=== PATIENT | female | born 2005 | race Caucasian/White ===

== ENCOUNTER 2025-05-06 09:26 | Emergency (ER) | payer MEDICAID, SELFPAY ==
[2025-05-06 09:29] VITALS: BP 125/75; PULSE 107; RESP 18; TEMP 36.3; O2SAT 98; BMI 29.1
--- NOTE | 2025-05-06 09:50 | CRLHL7_ITS ---
For Patients: As a result of the Century Cures Act, medical imaging exams and procedure reports are released immediately into your electronic medical record. You may view this report before your referring provider. If you have questions, please contact your health care provider. INDICATION: Rectal bleeding. Abdominal pain. TECHNIQUE: CT abdomen and pelvis acquired with 91 cc Isovue 370 IV contrast. COMPARISON: None. FINDINGS: Lower chest: Unremarkable. Liver: Unremarkable. Normal in size and attenuation. No suspicious masses. Gallbladder and bile ducts: Unremarkable. No stones or inflammation. No biliary dilatation. Pancreas: Unremarkable. No mass or inflammation. Spleen: Unremarkable. Normal in size. No masses. Adrenal glands: Unremarkable. No nodules. Kidneys: Unremarkable. No suspicious masses, stones, or hydronephrosis. GI tract: Generalized wall thickening and edema throughout the colon, most severe in the ascending and sigmoid colon. Normal small bowel. Appendix is dilated up to 7 mm with wall thickening. Vasculature: Abdominal aorta is normal in caliber. Mesenteric arteries are patent. Lymph nodes: No lymphadenopathy. Peritoneum/Abdominal Wall: Unremarkable. No sign of mass or infiltration. No free air or significant free fluid. Pelvis: Unremarkable. Bones: Unremarkable for age. IMPRESSION: 1. Generalized colitis. 2. Dilatation and wall thickening of the appendix is likely secondary to the inflammatory process in the colon rather than a primary appendicitis. Please note that all CT scans at this facility use dose modulation, iterative reconstruction, and/or weight-based dosing when appropriate to reduce radiation dose to as low as reasonably achievable. Dictated by Ryan Del Valle MD @ 05/06/2025 10:56:50 AM (Electronically Signed)
--- NOTE | 2025-05-06 09:52 | ED.GENADULT ---
HPI - General Adult General Chief complaint: Abdominal Pain Stated complaint: Abdominal pains, bloody stools, vomiting Time Seen by Provider: 05/06/25 09:45 Source: patient Mode of arrival: ambulatory Limitations: no limitations History of Present Illness HPI narrative: 20-year-old female presenting today with 2 days of abdominal pain that is located ?everywhere?. Nothing seems to make it better or worse. Yesterday she said she had multiple bowel movements that had bright red blood in them. She states that she vomited this morning and her vomit looked like red Gatorade. She denies anything like this happening before. States that she had pizza last night. She feels lightheaded. She denies feeling short of breath. No coughing. Patient is adopted, unsure of family history. Related Data Home Medications ?Medication ?Instructions ?Recorded ?Confirmed No Known Home Medications 05/06/25 05/06/25 Allergies Allergy/AdvReac Type Severity Reaction Status Date / Time oxytocin AdvReac Intermediate Vomiting Verified 05/06/25 10:34 Review of Systems Status of ROS: Reports: 10 or more systems reviewed and unremarkable except as noted in History and below [facility] Social History Smoking Status: Never smoker Do you use any of these nicotine containing products: None Second hand tobacco smoke exposure: No How often do you have a drink containing alcohol: never How often do you have six or more drinks on one occasion: Never AUDIT-C Alcohol total score: 0 Non-prescribed substance use: denies use Exam Narrative: Exam Narrative: Well-nourished well-developed patient in no acute distress. Alert and oriented. Answers questions appropriately. Mood and affect are appropriate. Thoughts are goal oriented and rational. No tangential or magical thinking noted. Patient speaks in full sentences without needing to catch her breath. Patient does not appear ill or toxic. HEENT: Normocephalic atraumatic. Pupils are equally round reactive to light. Extraocular muscles are intact. Conjunctivae are moist without any icterus noted. Moist mucous membranes. Posterior pharynx is normal. Neck is soft without any lymphadenopathy or thyromegaly. Cardiovascular: Heart is regular rate and rhythm S1 and S2 are present without any murmurs. Lungs: Clear to auscultation bilaterally no wheezes rhonchi or rales are appreciated. Patient takes deep breaths without any discomfort. Abdomen: Soft and nondistended with normal bowel sounds. No guarding or rebound. No masses or organomegaly appreciated. She has minimal diffuse tenderness. Extremities: Bilateral lower extremities are without edema. Normal DP and PT pulses. Skin: Well perfused without any obvious rashes. Const: Vital Signs, click to edit/add: Vital Signs - 24 hr 05/06/25 09:29 05/06/25 11:19 Temperature 97.3 F L 99.6 F Pulse Rate [Right Pulse Oximeter] 107 H 100 Respiratory Rate 18 18 Blood Pressure [Ri ght Upper Arm] 125/75 99/74 Pulse Oximetry 98 98 Oxygen Delivery Me thod Room Air Room Air Course Course ED Course: IV established and patient started on Zofran and normal saline. Labs were drawn: Normal lactate. CBC shows a white cell count of 13.7 with 86% neutrophils. Chemistries and LFTs are normal. CRP elevated at 4.9. Urine unremarkable. CT scan showing diffuse colitis. Patient was able to drink and keep water down while she was here. She did not have any bowel movement. Vital Signs Vital signs: Initial Vital Signs Temperature 97.3 F L 05/06/25 09:29 Temperature Source Temporal Artery Scan 05/06/25 09:29 Pulse Rate 107 H 05/06/25 09:29 Pulse Rhythm Regular 05/06/25 09:29 Pulse Strength 3+ Normal 05/06/25 09:29 Respiratory Rate 18 05/06/25 09:29 Blood Pressure 125/75 05/06/25 09:29 Blood Pressure Mean 91 05/06/25 09:29 Blood Pressure Position Sitting 05/06/25 09:29 Pulse Oximetry 98 05/06/25 09:29 Oxygen Delivery Method Room Air 05/06/25 09:29 Vital Signs Temperature 97.3 F L 05/06/25 09:29 Pulse Rate 107 H 05/06/25 09:29 Respiratory Rate 18 05/06/25 09:29 Blood Pressure 125/75 05/06/25 09:29 Pulse Oximetry 98 05/06/25 09:29 Oxygen Delivery Method Room Air 05/06/25 09:29 Temperature 99.6 F 05/06/25 11:19 Pulse Rate 100 05/06/25 11:19 Respiratory Rate 18 05/06/25 11:19 Blood Pressure 99/74 08/10/25 11:19 Pulse Oximetry 98 05/06/25 11:19 Oxygen Delivery Method Room Air 05/06/25 11:19 Medications Administered Medications: Discontinued Medications Generic Name Dose Route Start Last Admin Trade Name Yann PRN Reason Stop Dose Admin Sodium Chloride 1,000 mls @ 1,000 mls/hr 05/06/25 10:00 05/06/25 11:17 0.9 % Sodium Chloride 1000 Ml IV 05/06/25 10:59 Infused .Q1H SAGE Infusion Ondansetron HCl 4 mg 05/06/25 09:50 05/06/25 10:18 Ondansetron 2 Mg/Ml Inj IVP 05/06/25 09:51 4 mg ONCE ONE Administration Medical Decision Making MDM Narrative Medical decision making narrative: 20-year-old female with diffuse colitis. We discussed a clear liquid diet until she starts to feel better, Tylenol or ibuprofen as needed. I want her to follow up with her primary care provider this coming week to discuss the next steps which may include a colonoscopy. If patient gets worse she is encouraged to return to the emergency department. We did discuss hospitalization today and patient feels like she can manage at home. She will be sent home with a stool collecting kit for stool cultures and C diff testing. Lab Data Lab results reviewed: Yes I reviewed the patient's lab results Labs: Lab Results 05/06/25 05/06/25 Range/Units 09:51 10:00 WBC 13.73 H (4.50-11.00) K/uL RBC 5.11 (4.00-5.20) m/uL Hgb 14.7 (12.0-16.0) gm/dL Hct 44.0 (33.0-51.0) % MCV 86 (80-100) fL MCH 29 (26-34) pg MCHC 33 (32-36) gm/dL RDW Coeff of Michelle 12.3 (11.5-15.5) % Plt Count 328 (140-440) K/uL Neut % (Auto) 86.2 H (42.0-72.0) % Lymph % (Auto) 8.3 L (20-44) % [place] % (Auto) 5.0 (0.0-11.0) % Eos % (Auto) 0.1 (0.0-7.0) % Baso % (Auto) 0.1 (0.0-3.0) % Neut # (Auto) 11.80 H (1.7-7.0) K/uL Lymph # (Auto) 1.10 (0.90-2.90) K/uL [place] # (Auto) 0.70 (0.00-0.90) K/UL Eos # (Auto) 0.00 (0.00-0.50) K/uL Baso # (Auto) 0.00 (0.00-0.30) K/uL Abs Immat Gran (auto) 0.00 (0.00-0.30) K/uL Imm/Tot Granulo (auto) 0.3 % ESR 8 (2-20) mm/hr INR 1.02 (0.91-1.10) Sodium 135 (135-149) mmol/L Potassium 4.0 (3.6-5.1) mmol/L Chloride 102 (96-114) mmol/L Carbon Dioxide 26 (20-32) mmol/L Anion Gap 7 (7-15) mEq/L BUN 8 (5-24) mg/dL Creatinine 0.8 (0.5-1.5) mg/dL Estimated Creat Clear 108.17 Estimated GFR 107 ml/min Glucose 106 (60-115) mg/dL Lactate 0.8 (0.5-1.9) mmol/L Calcium 9.2 (8.4-10.6) mg/dL Total Bilirubin 0.7 (0.1-1.5) mg/dL Direct Bilirubin 0.2 (0.0-0.5) mg/dL AST 23 (12-35) U/L ALT 17 (4-35) U/L Alkaline Phosphatase 149 (40-150) U/L C-Reactive Protein 4.9 H (0.5-1.0) mg/dL Total Protein 7.0 (6.0-8.3) g/dL Albumin 4.1 (3.3-5.0) g/dL Lipase 69 (23-300) U/L Urine Color Dark yellow (Yellow) Urine Appearance Slightly Cloudy A (Clear) Urine pH 6.0 (5.0-8.5) Ur Specific [place] >= 1.030 (1.000-1.030) Urine Protein Negative (Negative) Urine Glucose (UA) Negative (Negative) Urine Ketones Negative (Negative) Urine Blood Negative (Negative) Urine Nitrite Negative (Negative) Urine Bilirubin Negative (Negative) Urine Urobilinogen 0.2 (0.2-1.0) Ur Leukocyte Esterase Negative (Negative) Urine RBC 0-2 (0-2) Urine WBC 2-5 (0-5) Ur Squamous Epith Cells Moderate A (None-Few) Urine Bacteria Few A (None) Urine HCG, Qual Negative (Negative) Imaging Data CT scan - abdomen: Attestation: I have reviewed the pertinent imaging results. Radiologist's impression: TECHNIQUE: CT abdomen and pelvis acquired with 91 cc Isovue 370 IV contrast. COMPARISON: None. FINDINGS: Lower chest: Unremarkable. Liver: Unremarkable. Normal in size and attenuation. No suspicious masses. Gallbladder and bile ducts: Unremarkable. No stones or inflammation. No biliary dilatation. Pancreas: Unremarkable. No mass or inflammation. Spleen: Unremarkable. Normal in size. No masses. Adrenal glands: Unremarkable. No nodules. Kidneys: Unremarkable. No suspicious masses, stones, or hydronephrosis. GI tract: Generalized wall thickening and edema throughout the colon, most severe in the ascending and sigmoid colon. Normal small bowel. Appendix is dilated up to 7 mm with wall thickening. Vasculature: Abdominal aorta is normal in caliber. Mesenteric arteries are patent. Lymph nodes: No lymphadenopathy. Peritoneum/Abdominal Wall: Unremarkable. No sign of mass or infiltration. No free air or significant free fluid. Pelvis: Unremarkable. Bones: Unremarkable for age. IMPRESSION: 1. Generalized colitis. 2. Dilatation and wall thickening of the appendix is likely secondary to the inflammatory process in the colon rather than a primary appendicitis. Discharge Plan Discharge Clinical Impression: Colitis Patient Disposition: Home, Self-Care Condition: Stable Instructions: Colitis (ED) Additional Instructions: Recommend clear liquid diet until your pain starts to get better than you can slowly advanced her diet as tolerated. Recommend chicken broth, Pedialyte and plenty of water. Okay to use ibuprofen/Tylenol as needed for discomfort. Recommend you follow-up with your primary care provider this coming week to see how you are doing and discuss next steps. Return to the emergency department if your symptoms get worse, you cannot keep down fluids, you develop a fever or your pain is uncontrolled. Prescriptions: No Action No Known Home Medications Follow Up/Referrals: Provider,Not a Local [Primary Care Provider, Family Practice] Stand Alone Forms: MyHealth Info Instructions
--- OUTSIDE RECORDS SUMMARY | 2025-05-06 10:05 | XMS_ITS | Clinical Summary ---
Author Organization [facility] Address [address] [place] [id number] Care Team Providers Care Gis Programmer Name Role Phone Clinic, No Pcp Or Primary Care Provider Unavaila ble Medications No known medications Encounters Date Type Department Care Team Description 04/17/2025 Travel from Last 3 Months Social History Tobacco Use Types Packs/Day Years Used Date Smoking Tobacco: Never Assessed Comments Unknown Sex and Gender Information Value Date Recorded Sex Assigned at Not on file Legal Sex Female 8:02 AM CDT Gender Identity Not on file Sexual Orientation Not on file Plan of Treatment Upcoming Encounters Date Type Department Care Team (Late st Contact Info) Description 05/08/2025 10:15 AM CDT Office Visit [facility] [address] [place] [address] Sherrill Colorado MD [address] [place] [address] Health Maintenance Due Date Last Done Comments Tetanus booster 2015 Depression screening for age 12+ 2016 HIV for age 15-65 2019 HPV series for age 9-26 (1 - 3-dose series) 2019 Chlamydia for age 16-24 2020 BMI (ht and wt on same day) for age 18+ 2022 Hepatitis C screening for age 18-79 2022 Hepatitis B series for 19+ ( 1 of 3 - 19+ 3-dose series) 2023 COVID-19 vaccine series ( season) 2024 Pap test for age 21-65 2025 Influenza Vaccine (#1) 2025 Meningococcal series for age 11-21 Aged Out No longer eligible based on patient's age to complete this topic Pneumococcal series for age 6-49 Aged Out No longer eligible based on patient's age to complete this topic Care Teams Gis Programmer Relationship Specialty Start Date End Date Clinic, No Pcp Or . PCP - General 04/12/25
[2025-05-06 10:17] LABS: Lactate* 0.8 mmol/L (0.5-1.9)
[2025-05-06] MEDS: ONDANSETRON 2 MG/ML inj 4 MG IVP (10:18)
[2025-05-06 10:22] LABS: Hematocrit 44.0 % (33.0-51.0); Hemoglobin* 14.7 gm/dL (12.0-16.0); Immature Granulocytes Pct Auto 0.3 %; Mean Corpuscular HGB Conc 33 gm/dL (32-36); Mean Corpuscular Hemoglobin 29 pg (26-34); Mean Corpuscular Volume 86 fL (80-100); RDW Coefficient of Variation % 12.3 % (11.5-15.5); Red Blood Count 5.11 m/uL (4.00-5.20); White Blood Count* 13.73 K/uL (4.50-11.00)
[2025-05-06 10:26] LABS: Immature Granulocytes Abs Auto 0.00 K/uL (0.00-0.30); Lymphocytes Absolute Auto 1.10 K/uL (0.90-2.90); Slide Review Reflex No
[2025-05-06 10:32] LABS: Appearance Urine Slightly Cloudy (Clear)
[2025-05-06 10:35] LABS: Chloride* 102 mmol/L (96-114); Sodium* 135 mmol/L (135-149)
[2025-05-06 10:36] LABS: Albumin* 4.1 g/dL (3.3-5.0); Potassium* 4.0 mmol/L (3.6-5.1)
[2025-05-06 10:39] LABS: Alanine Aminotransferase* 17 U/L (4-35); Alkaline Phosphatase* 149 U/L (40-150); Anion Gap 7 mEq/L (7-15); Aspartate Amino Transferase* 23 U/L (12-35); Bilirubin Direct* 0.2 mg/dL (0.0-0.5); Bilirubin Total* 0.7 mg/dL (0.1-1.5); Blood Urea Nitrogen* 8 mg/dL (5-24); Calcium* 9.2 mg/dL (8.4-10.6); Carbon Dioxide* 26 mmol/L (20-32); Creatinine* 0.8 mg/dL (0.5-1.5); Est. Creatinine Clearance* 108.17; Estimated Glomerular Filt Rate 107 ml/min; Glucose* 106 mg/dL (60-115); Total Protein* 7.0 g/dL (6.0-8.3)
[2025-05-06 11:01] LABS: INR 1.02 (0.91-1.10); Prothrombin Time 14.2 Seconds
[2025-05-06 11:13] LABS: Erythrocyte SedimentationRate* 8 mm/hr (2-20)
[2025-05-06 11:15] LABS: Ur HCG Qualitative* Negative (Negative)
[2025-05-06 11:19] VITALS: BP 99/74; PULSE 100; RESP 18; TEMP 37.6; O2SAT 98
[2025-05-06 12:23] VITALS: BP 110/70; PULSE 107; RESP 18; O2SAT 98
[2025-05-06 12:37] VITALS: BP 110/70; PULSE 107; RESP 18; TEMP 37.4
[2025-05-06 17:42] LABS: C.Difficile Negative (Negative); CDIFFEPI 027 PRESUMPTIVE NEGATIVE (Negative)
== END 2025-05-06 12:39 | disposition home or self-care (01) ==
PROVIDERS: Emergency Provider Family Medicine
DX: K52.9 Noninfective gastroenteritis and colitis, unspecified (principal)
CPT/HCPCS: 36415; 74177; 80048; 80076; 81001; 81025; 83605; 83690; 85025; 85610; 85651; 86140; 87045; 87046; 87086; 87427; 87493; 96374; 99284; 99285; J2405; J7030; Q9967

== ENCOUNTER 2025-07-31 14:53 | Outpatient (CLI) | payer BC, SELFPAY ==
[2025-08-08 15:30] LABS: Pap Test Screened Manually Done
== END 2025-07-31 14:54 | disposition home or self-care (01) ==
LOC: NFLDREF 14:54
PROVIDERS: Visit Provider Advanced Practice Midwife
DX: Z12.4 Encounter for screening for malignant neoplasm of cervix (principal)
CPT/HCPCS: 87624; 87625; 88141; 88142; 88175

== ENCOUNTER 2025-08-03 14:09 | Outpatient (CLI) | payer BC, SELFPAY ==
--- NOTE | 2025-08-03 14:00 | CRLHL7_ITS ---
For Patients: As a result of the Century Cures Act, medical imaging exams and procedure reports are released immediately into your electronic medical record. You may view this report before your referring provider. If you have questions, please contact your health care provider. INDICATION: Missing IUD strings COMPARISON: None. TECHNIQUE: 2D lizama-scale and color Doppler images were acquired of the pelvis using a transabdominal and transvaginal approach. Transvaginal imaging performed to better visualize the endometrial stripe and ovaries. FINDINGS: Sonographic images demonstrate a normal size and smooth outer contour of the uterus. Uterus measures 9.1 cm in length by 4.0 cm in AP diameter by 4.9 cm in transverse dimension. The myometrium has a normal uniform echotexture. IUD is present somewhat obliquely within the endometrial canal. The string is visualized in the mid endometrium. The right ovary measures 5.0 x 3.2 x 3.5 cm in size and the left ovary is not visualized due to bowel gas. The right ovary demonstrates normal arterial and venous blood flow on color Doppler analysis. There are no suspicious fluid collections within the cul-de-sac. Simple right ovarian cyst is present which measures 3.2 x 2.2 x 1.5 cm. Additional simple right ovarian cyst measures 2.6 x 3.0 x 2.6 cm. IMPRESSION: IUD present in the fundal endometrial canal, positioned somewhat obliquely of doubtful significance. Two simple cysts within the right ovary measuring up to 3.2 cm. Dictated by Juancarlos Alcantar MD @ 08/04/2025 7:06:44 AM (Electronically Signed)
== END 2025-08-03 14:10 | disposition home or self-care (01) ==
LOC: US 14:09
PROVIDERS: Visit Provider Advanced Practice Midwife
DX: T83.32XA Displacement of intrauterine contraceptive device, initial encounter (principal); N83.291 Other ovarian cyst, right side
CPT/HCPCS: 76830; 76856; 93976

== ENCOUNTER 2025-08-16 06:14 | Day surgery (SDC) | payer BC, SELFPAY ==
[2025-08-16] VITALS (15 sets, daily range): BP systolic 81–133; BP diastolic 38–76; PULSE 56–111; RESP 14–18; TEMP 36.3–36.8; O2SAT 96–100; BMI 36.4
--- OUTSIDE RECORDS SUMMARY | 2025-08-16 06:16 | XMS_ITS | Clinical Summary ---
Author Organization [employer] [facility] Address [address] [place] [id number] Care Team Providers Care Sap Hana Developer Name Role Phone Sherrill Colorado MD Primary Care Prov ider Allergies No known active allergies Medications sertraline (ZOLOFT) 100 mg tabletIndications: Anxiety and depression Take 1 Tablet (100 mg) by mouth once daily in the morning. 90 Tablet 06/08/20 25 Active ondansetron (ZOFRAN ODT) 4 mg disintegrating tabletIndications: Nausea Place 1 Tablet (4 mg) on the tongue every 8 hours if needed for Nausea/Vomi ting. 14 Tablet 06/08/20 25 Active dextroamphetamine- amphetamine (Adderall XR) 20 mg Extended-Release capsuleIndications :Attention deficit hyperactivity disorder (ADHD), predominantly inattentive type Take 1 Capsule (20 mg) by mouth once daily. 30 Capsule 08/07/20 25 Active metoclopramide HCl (REGLAN) 10 mg tabletIndications: Vomiting, unspecified vomiting type, unspecified whether nausea present Take 1 Tablet (10 mg) by mouth every 6 hours if needed for Nausea/Vomi ting. 12 Tablet 08/13/20 25 Active nitrofurantoin macrocrystals/mono hydrate (Macrobid) 100 mg capsuleIndications :Urinary tract infection without hematuria, site unspecified Take 1 Capsule (100 mg) by mouth two times daily. 10 Capsule 08/13/20 25 Active dextroamphetamine- amphetamine (Adderall XR) 20 mg Extended-Release capsuleIndications :Attention deficit hyperactivity disorder (ADHD), predominantly inattentive type Take 1 Capsule (20 mg) by mouth once daily. 30 Capsule 10/12/20 25 025 metoclopramide HCl (REGLAN) 10 mg tabletIndications: Vomiting, unspecified vomiting type, unspecified whether nausea present Take 1 Tablet (10 mg) by mouth every 6 hours if needed for Nausea/Vomi ting. 12 Tablet 08/13/20 25 025 Discontinued nitrofurantoin macrocrystals/mono hydrate (Macrobid) 100 mg capsuleIndications :Urinary tract infection without hematuria, site unspecified Take 1 Capsule (100 mg) by mouth two times daily for 5 days. 10 Capsule 08/13/20 25 025 Discontinued Active Problems Problem Noted Date Diagnosed Date Anxiety and depression 05/08/2025 Attention deficit hyperactivity disorder (ADHD) 05/08/2025 Encounters Date Type Department Care Team Description 08/13/2025 4:51 PM MEDICAL ASSISTANT DERMATOLOGY - 08/13/2025 6:52 PM [facility] Emergency [facility] [address] [place] [address] Fredrick Becerril MD Abdominal pain, unspecified abdominal location (Primary Dx); Vomiting, unspecified vomiting type, unspecified whether nausea present; Urinary tract infection without hematuria, site unspecified Discharge Disposition: Home Self Care 08/13/2025 Travel 08/13/2025 Nurse Triage [facility] [address] [place] [address] Sherrill Colorado MD Abdominal Pain/problem 06/11/2025 Orders Only [facility] [address] [place] [address] Sherrill Colorado MD <No scans attached> 06/11/2025 Orders Only [facility] Sherrill Colorado MD <No scans attached> 06/08/2025 8:10 AM CDT Office Visit [facility] [address] [place] [address] Sherrill Colorado MD Medication Management (Sertraline - needs to be increased/Adderall on hold - would like to restart/Wellburtrin? ); Cholecystitis (Would like to start medication ); Neck Pain/problem (neck pain, back pain - ) 06/08/2025 Travel from Last 3 Months Social History Tobacco Use Types Packs/Day Years Used Date Smoking Tobacco: Never Smokeless Tobacco: Never Tobacco Cessation:Counseling Given: Not Answered Alcohol Use Standard Drinks/Week Comments Yes 0 (1 standard drink = 0.6 oz pur e alcohol) PHQ-2 Answer Date Recorded PHQ-2 TOTAL SCORE 3 06/08/2025 Alcohol Use Answer Date Recorded How often do you have a drink containing alcohol ? 1 05/08/2025 How many drinks containing a lcohol do you have on a typical day when you are drinking? 0 05/08/2025 How often do you have five or more drinks on one occasion? 0 05/08/2025 Interpersonal Safety Answer Date Record ed Are you being hit, kicked, p ushed or yelled at (see row info)? No 08/13/2025 Interpersonal Safety Abuse 12 - 18 Not on file 08/13/2025 Interpersonal Safety Ambulatory Vulnerability No t on file 08/13/2025 Comments No Sex and Gender Information Value Date Recorded Sex Assigned at Not on file Legal Sex Female 8:02 AM CDT Gender Identity Not on file Sexual Orientation Not on file Obstetrics History Para Term AB IAB SAB Ectopic Multiple Livin g Live Births 1 Date Outcome GA Total Labor Labor/2nd/3rd Weight Sex Type Anes PTL Chelsey A1 A5 Name Clin Last Filed Vital Signs Vital Sign Reading Time Taken Comments Blood Pressure 137/84 08/13/2025 4:56 PM MEDICAL ASSISTANT DERMATOLOGY Pulse 82 08/13/2025 4:56 PM MEDICAL ASSISTANT DERMATOLOGY Temperature 36.7 C (98 F) 08/13/2025 4:56 PM MEDICAL ASSISTANT DERMATOLOGY Respiratory Rate 16 08/13/2025 4:56 PM MEDICAL ASSISTANT DERMATOLOGY Oxygen Saturation 98% 08/13/2025 4:56 PM MEDICAL ASSISTANT DERMATOLOGY Inhaled Oxygen Concentration - - Weight 96.2 kg (212 lb) 08/13/2025 4:56 PM MEDICAL ASSISTANT DERMATOLOGY Height 162.6 cm (5' 4) 08/13/2025 4:56 PM MEDICAL ASSISTANT DERMATOLOGY Body Mass Index 36.39 08/13/2025 4:56 PM MEDICAL ASSISTANT DERMATOLOGY Plan of Treatment Upcoming Encounters Date Type Department Care Team (Late st Contact Info) Description 08/22/2025 7:45 AM MEDICAL ASSISTANT DERMATOLOGY Office Visit [facility] [address] [place] [address] Sherrill Colorado MD [address] [place] [address] 09/07/2025 9:00 AM MEDICAL ASSISTANT DERMATOLOGY Office Visit [facility] [address] [place] [address] Sherrill Colorado MD [address] [place] [address] Health Maintenance Due Date Last Done Comments Tetanus booster 2015 HIV for age 15-65 2019 HPV series for age 9-45 (1 - 3-dose series) 2019 Chlamydia for age 16-24 2020 Hepatitis C screening for ag e 18-79 2022 Hepatitis B series for 19+ ( 1 of 3 - 19+ 3-dose series) 2023 Pap test for age 21-65 2025 Influenza Vaccine (#1) 2025 BMI (ht and wt on same day) for age 18+ 05/08/2026 05/08/2025 Depression screening for age 12+ 06/08/2026 06/08/2025, 05/08/2025 RSV vaccine for adults or (1 - 1-dose 75+ series) 2079 Meningococcal series for age 11-21 Aged Out No longer eligible b ased on patient's age to complete this topic Pneumococcal series for age 6-49 Aged Out No longer eligible b ased on patient's age to complete this topic Procedures Procedure Name Priority Date/Time Associated Diagnosis Comments XR ABDOMEN 2 VIEW FLAT AND UPRIGHT OR DECUBITUS STAT 08/13/2025 5:47 PM MEDICAL ASSISTANT DERMATOLOGY CBC WITH AUTO DIFFERENTIAL STAT 08/13/2025 5:34 PM MEDICAL ASSISTANT DERMATOLOGY LIPASE STAT 08/13/2025 5:34 PM MEDICAL ASSISTANT DERMATOLOGY HEPATIC FUNCTION PANEL STAT 08/13/2025 5:34 PM MEDICAL ASSISTANT DERMATOLOGY BASIC METABOLIC PANEL STAT 08/13/2025 5:34 PM MEDICAL ASSISTANT DERMATOLOGY CBC WITH AUTO DIFFERENTIAL STAT 08/13/2025 5:34 PM MEDICAL ASSISTANT DERMATOLOGY URINALYSIS MICROSCOPIC STAT 08/13/2025 4:55 PM MEDICAL ASSISTANT DERMATOLOGY UA W/ SEDIMENT EXAM REFLEXED PER CRITERIA STAT 08/13/2025 4:55 PM MEDICAL ASSISTANT DERMATOLOGY URINE STAT 08/13/2025 4:55 PM MEDICAL ASSISTANT DERMATOLOGY CBC WITH AUTO DIFFERENTIAL Routine 06/08/2025 9:08 AM CDT Nausea Acute diarrhea CBC WITH AUTO DIFFERENTIAL Routine 06/08/2025 9:08 AM CDT Nausea Acute diarrhea COMP METABOLIC PANEL Routine 06/08/2025 9:08 AM CDT Nausea Acute diarrhea LIPASE Routine 06/08/2025 9:08 AM CDT Nausea Acute diarrhea HCG BETA QUANT, Routine 06/08/2025 9:08 AM CDT Nausea Acute diarrhea from Last 3 Months Results * XR ABDOMEN 2 VIEW FLAT AND UPRIGHT OR DECUBITUS (08/13/2025 5:47 PM MEDICAL ASSISTANT DERMATOLOGY) Anatomical Region Laterality Modality Abdomen Digital Radiogra phy 08/13/2025 6:15 PM MEDICAL ASSISTANT DERMATOLOGY Narrative 08/13/2025 6:15 PM MEDICAL ASSISTANT DERMATOLOGY For Patients: As a result of the Century Cures Act, medical imaging exams and procedure reports are released immediately into your electronic medical record. You may view this report before your referring provider. If you have questions, please contact your health care provider. Indication: Abdominal pain. Technique: Abdomen 2 view. Comparison: None. Findings/Impression: Bowel: Bowel pattern is normal. Moderate colonic stool burden in the proximal colon. Soft tissues: No sign of free air. No sign of soft tissue mass. No suspicious calcifications. Bones: Unremarkable for age. Dictated by Osvaldo Harry MD @ 08/13/2025 6:15:06 PM (Electronically Signed) Procedure Note Osvaldo Harry MD - 08/13/2025 For Patients: As a result of the Cures Act, medical imagingexams and procedure reports are released immediately into your electronicmedical record. You may view this report before your referring provider.If you have questions, please contact your health care provider. Indication: Abdominal pain. Technique: Abdomen 2 view. Comparison: None. Findings/Impression: Bowel: Bowel pattern is normal. Moderate colonic stool burden in theproximal colon. Soft tissues: No sign of free air. No sign of soft tissue mass. Nosuspicious calcifications. Bones: Unremarkable for age. Dictated by Osvaldo Harry MD @ 08/13/2025 6:15:06 PM (Electronically Signed) Fredrick Becerril MD GENERAL IMAGING Final Result * (ABNORMAL) CBC WITH AUTO DIFFERENTIAL (08/13/2025 5:34 PM MEDICAL ASSISTANT DERMATOLOGY) Only the most recent of2 resultswithin the time period is included. WHITE BLOOD COUNT 11.6(H) 4.5 - 11.0 thou/cu mm 08/13/2025 5:41 PM [facility] RED BLOOD COUNT 4.72 4.00 - 5.20 mil/cu mm 08/13/2025 5:41 PM [facility] HEMOGLOBIN 13.6 12.0 - 16.0 g/dL 08/13/2025 5:41 PM [facility] HEMATOCRIT 40.2 33.0 - 51.0 % 08/13/2025 5:41 PM [facility] MCV 85 80 - 100 fL 08/13/2025 5:41 PM [facility] MCH 28.8 26.0 - 34.0 pg 08/13/2025 5:41 PM [facility] MCHC 33.8 32.0 - 36.0 g/dL 08/13/2025 5:41 PM [facility] RDW 13.0 11.5 - 15.5 % 08/13/2025 5:41 PM [facility] PLATELET COUNT 320 140 - 440 thou/cu mm 08/13/2025 5:41 PM [facility] MPV 9.0 6.5 - 11.0 fL 08/13/2025 5:41 PM [facility] % NEUT 54.8 % 08/13/2025 5:41 PM [facility] % LYMPH 35.0 % 08/13/2025 5:41 PM [facility] % MONO 8.5 % 08/13/2025 5:41 PM [facility] % EOS 1.6 % 08/13/2025 5:41 PM [facility] % BASO 0.1 % 08/13/2025 5:41 PM [facility] ABSOLUTE NEUTROPHILS 6.3 1.7 - 7.0 thou/cu mm 08/13/2025 5:41 PM [facility] ABSOLUTE LYMPHOCYTES 4.1(H) 0.9 - 2.9 thou/cu mm 08/13/2025 5:41 PM [facility] ABSOLUTE MONOCYTES 1.0(H) <0.9 thou/cu mm 08/13/2025 5:41 PM [facility] ABSOLUTE EOSINOPHILS 0.2 <0.5 thou/cu mm 08/13/2025 5:41 PM [facility] ABSOLUTE BASOPHILS 0.0 <0.3 thou/cu mm 08/13/2025 5:41 PM [facility] Blood BLOOD SPECIMEN / Unknown Venipuncture / Unknown 08/13/2025 5:34 PM MEDICAL ASSISTANT DERMATOLOGY 08/13/2025 5:38 PM MEDICAL ASSISTANT DERMATOLOGY us Fredrick Becerril MD HEMATOLOGY Final Result [facility] [address] [place] [address] * LIPASE (08/13/2025 5:34 PM MEDICAL ASSISTANT DERMATOLOGY) Only the most recent of2 resultswithin the time period is included. LIPASE 34.2 13.0 - 60.0 IU/L 08/13/2025 5:58 PM [facility] Blood BLOOD SPECIMEN / Unknown Venipuncture / Unknown 08/13/2025 5:34 PM MEDICAL ASSISTANT DERMATOLOGY 08/13/2025 5:38 PM MEDICAL ASSISTANT DERMATOLOGY Fredrick Becerril MD CHEMISTRY Final Result [facility] [address] [place] [address] * (ABNORMAL) HEPATIC FUNCTION PANEL (08/13/2025 5:34 PM MEDICAL ASSISTANT DERMATOLOGY) Pathologist [facility] ALBUMIN 3.9(L) 4.0 - 4.9 g/dL 08/13/2025 5:58 PM [facility] PROTEIN,TOTAL 6.2 6.0 - 8.0 g/dL 08/13/2025 5:58 PM [facility] BILIRUBIN,TOTAL 0.2 0.0 - 1.2 mg/dL 08/13/2025 5:58 PM [facility] BILIRUBIN,DIRECT 0.1 0.0 - 0.2 mg/dL 08/13/2025 5:58 PM [facility] BILIRUBIN,INDIRE CT 0.1(L) 0.2 - 0.8 mg/dL 08/13/2025 5:58 PM [facility] ALK PHOSPHATASE 138(H) 35 - 104 IU/L 08/13/2025 5:58 PM [facility] ALT (SGPT) 14 10 - 35 IU/L 08/13/2025 5:58 PM [facility] AST (SGOT) 18 10 - 35 IU/L 08/13/2025 5:58 PM [facility] Blood BLOOD SPECIMEN / Unknown Venipuncture / Unknown 08/13/2025 5:34 PM MEDICAL ASSISTANT DERMATOLOGY 08/13/2025 5:38 PM MEDICAL ASSISTANT DERMATOLOGY rFedrick Becerril MD CHEMISTRY Final Result [facility] [address] [facility] [place] [address] * (ABNORMAL) BASIC METABOLIC PANEL (08/13/2025 5:34 PM MEDICAL ASSISTANT DERMATOLOGY) SODIUM 140 136 - 145 mmol/L 08/13/2025 5:58 PM [facility] POTASSIUM 4.0 3.5 - 5.1 mmol/L 08/13/2025 5:58 PM [facility] CHLORIDE 105 98 - 107 mmol/L 08/13/2025 5:58 PM [facility] CO2,TOTAL 25 22 - 29 mmol/L 08/13/2025 5:58 PM [facility] ANION GAP 10 5 - 18 08/13/2025 5:58 PM [facility] GLUCOSE 104(H) 70 - 99 mg/dL 08/13/2025 5:58 PM [facility] CALCIUM 9.3 8.8 - 10.4 mg/dL 08/13/2025 5:58 PM [facility] Comment: Reference ranges for this test were updated on 08/01/2024 to reflect our healthy population more accurately. Reference range changes are not retroactively applied to results, but previous results using the same methodology can be interpreted in the context of the new reference range. BUN 12 6 - 20 mg/dL 08/13/2025 5:58 PM [facility] CREATININE 0.71 0.50 - 0.90 mg/dL 08/13/2025 5:58 PM [facility] BUN/CREAT RATIO 17 10 - 20 5:58 PM [facility] eGFR >90 >90 mL/min/1. 73m2 08/13/2025 5:58 PM [facility] Comment:As of 2021, eG FR is calculated by the CKD-EPI creatinine equation without race adjustment. eGFR can be influenced by muscle mass, exercise, and diet. The reported eGFR is an estimation only and is only applicable if the renal function is stable. Blood BLOOD SPECIMEN / Unknown Venipuncture / Unknown 08/13/2025 5:34 PM MEDICAL ASSISTANT DERMATOLOGY 08/13/2025 5:38 PM MEDICAL ASSISTANT DERMATOLOGY Fredrick Becerril MD CHEMISTRY Final Result Performing Organization Address [facility]/ZIP Co de Phone Number [facility] [address] [place] [address] * (ABNORMAL) URINALYSIS MICROSCOPIC (08/13/2025 4:55 PM MEDICAL ASSISTANT DERMATOLOGY) RBC 0-2 0-2, None Seen /HPF 08/13/2025 5:12 PM [facility] WBC 6-10(A) 0-2, 3-5, None Seen /HPF 08/13/2025 5:12 PM [facility] BACTERIA Many(A) None Seen, Rare, Few Bacteria/H PF 08/13/2025 5:12 PM [facility] EPITHELIAL CELLS Many(A) None Seen, Few Epi/HPF 08/13/2025 5:12 PM [facility] Mucus Present 08/13/2025 5:12 PM [facility] Urine URINE SPECIMEN / Unknown Non-Blood / Unknown 08/13/2025 4:55 PM MEDICAL ASSISTANT DERMATOLOGY 08/13/2025 5:00 PM MEDICAL ASSISTANT DERMATOLOGY Fredrick Becerril MD URINE Final Result Performing Organization Address [facility]/ZIP Co de Phone Number [facility] [address] [place] [address] * (ABNORMAL) UA W/ SEDIMENT EXAM REFLEXED PER CRITERIA (08/13/2025 4:55 PM MEDICAL ASSISTANT DERMATOLOGY) COLOR Yellow Yellow Color 08/13/2025 5:07 PM [facility] CLARITY Slightly Cloudy(A) Clear Clarity 08/13/2025 5:07 PM [facility] SPECIFIC GRAVITY,URINE 1.025 1.010, 1.015, 1.020, 1.025 08/13/2025 5:07 PM [facility] PH,URINE 6.0 6.0, 7.0, 8.0, 5.5, 6.5, 7.5, 8.5 08/13/2025 5:07 PM [facility] UROBILINOGEN, QUALITATIVE Normal Normal EU/dl 08/13/2025 5:07 PM [facility] PROTEIN, URINE Negative Negative mg/dL 08/13/2025 5:07 PM [facility] GLUCOSE, URINE Negative Negative mg/dL 08/13/2025 5:07 PM [facility] KETONES,URINE Negative Negative mg/dL 08/13/2025 5:07 PM [facility] BILIRUBIN,URI NE Negative Negative 08/13/2025 5:07 PM [facility] OCCULT BLOOD,URINE Negative Negative 08/13/2025 5:07 PM [facility] NITRITE Negative Negative 08/13/2025 5:07 PM [facility] LEUKOCYTE ESTERASE Moderate(A) Negative 08/13/2025 5:07 PM [facility] Urine URINE SPECIMEN / Unknown Non-Blood / Unknown 08/13/2025 4:55 PM MEDICAL ASSISTANT DERMATOLOGY 08/13/2025 5:00 PM MEDICAL ASSISTANT DERMATOLOGY Fredrick Becerril MD URINE Final Result Performing Organization Address City/[facility]/ZIP Co de Phone Number [facility] [address] [place] [address] * URINE (08/13/2025 4:55 PM MEDICAL ASSISTANT DERMATOLOGY) ,URIN E Negative Negative 08/13/2025 5:07 PM [facility] Urine URINE SPECIMEN / Unknown Non-Blood / Unknown 08/13/2025 4:55 PM MEDICAL ASSISTANT DERMATOLOGY 08/13/2025 5:00 PM MEDICAL ASSISTANT DERMATOLOGY Fredrick Becerril MD URINE Final Result Performing Organization Address City/[facility]/ZIP Co de Phone Number [facility] [address] [place] [address] * HCG BETA QUANT, (06/08/2025 9:08 AM CDT) Pathologist [facility] HCG BETA QUANT,PREGNANC Y <1 mIU/mL 06/08/2025 4:40 PM CDT [facility] Blood BLOOD SPECIMEN / Unknown [facility] / Unknown 06/08/2025 9:08 AM CDT 06/08/2025 9:08 AM CDT Narrative [facility] - 06/08/2025 4:40 PM CDT Expected Value for Healthy Non- premenopausal women <5.3mIU/mL FOR GESTATIONAL ASSESSMENT-See Range Table Below Weeks of gestation hCG mIU/mL 3 weeks gestation (5.8 - 71.2) 4 weeks gestation (9.5 - 750) 5 weeks gestation (217 - 7138) 6 weeks gestation (158 - 31,795) 7 weeks gestation (3,697 - 163,563) 8 weeks gestation (32,065 - 149,571) 9 weeks gestation (63,803 - 151,410) 10 weeks gestation (46,509 - 186,977) 12 weeks gestation (27,832 - 210,612) 14 weeks gestation (13,950 - 62,530) 15 weeks gestation (12,039 - 70,971) 16 weeks gestation (9,040 - 56,451) 17 weeks gestation (8,175 - 55,868) 18 weeks gestation (8,099 - 58,176) Biotin supplements may cause clinically significant interference for this test assay. If interference is suspected, it is strongly recommended that biotin is discontinued for at least one week prior to retesting. us Sherrill Colorado MD CHEMISTRY Fi nal Result [facility] [address] [place] [address], * (ABNORMAL) COMP METABOLIC PANEL (06/08/2025 9:08 AM CDT) Pathologist [facility] SODIUM 145 135 - 146 mmol/L 06/12/2025 3:14 PM CDT [facility] POTASSIUM 4.7 3.5 - 5.3 mmol/L 06/12/2025 3:14 PM CDT [facility] CHLORIDE 109 98 - 110 mmol/L 06/12/2025 3:14 PM CDT [facility] CARBON DIOXIDE 23 20 - 32 mmol/L 06/12/2025 3:14 PM CDT [facility] GLUCOSE 80 65 - 99 mg/dL 06/12/2025 3:14 PM CDT [facility] Comment: Fasting reference interval CALCIUM 10.1 8.6 - 10.2 mg/dL 06/12/2025 3:14 PM CDT [facility] CREATININE 1.09(H) 0.50 - 0.96 mg/dL 06/12/2025 3:14 PM CDT [facility] BUN/CREATININE RATIO 15 6 - 22 (calc) 06/12/2025 3:14 PM CDT [facility] EGFR 74 > OR = 60 mL/min/1. 73m2 06/12/2025 3:14 PM CDT [facility] ALBUMIN 4.4 3.6 - 5.1 g/dL 06/12/2025 3:14 PM CDT [facility] PROTEIN, TOTAL 6.9 6.1 - 8.1 g/dL 06/12/2025 3:14 PM CDT [facility] BILIRUBIN, TOTAL 0.2 0.2 - 1.2 mg/dL 06/12/2025 3:14 PM CDT [facility] ALKALINE PHOSPHATASE 156(H) 31 - 125 U/L 06/12/2025 3:14 PM CDT [facility] ALT 24 6 - 29 U/L 06/12/2025 3:14 PM CDT [facility] AST 19 10 - 30 U/L 06/12/2025 3:14 PM CDT [facility] UREA NITROGEN (BUN) 16 7 - 25 mg/dL 06/12/2025 3:14 PM CDT [facility] GLOBULIN 2.5 1.9 - 3.7 g/dL (calc) 06/12/2025 3:14 PM CDT [facility] ALBUMIN/GLOBULIN RATIO 1.8 1.0 - 2.5 (calc) 06/12/2025 3:14 PM CDT [facility] Blood BLOOD SPECIMEN / Unknown [facility] / Unknown 06/08/2025 9:08 AM CDT 06/08/2025 9:08 AM CDT Sherrill Colorado MD CHEMISTRY Fi nal Result [facility] [address] [address], [place] [phone] from Last 3 Months Insurance [employer] Care Teams Sap Hana Developer Relationship Specialty Start Date End Date Sherrill Colorado MD [address] [place] [address] PCP - General Family Practice 06/08/25
--- NOTE | 2025-08-16 06:47 | CRLHL7_ITS ---
For Patients: As a result of the Century Cures Act, medical imaging exams and procedure reports are released immediately into your electronic medical record. You may view this report before your referring provider. If you have questions, please contact your health care provider. INDICATION: Abdominal pain. History of colitis. COMPARISON: May 06, 2025 TECHNIQUE: CT examination of the abdomen and pelvis was performed following the uneventful intravenous administration of 98 cc of Isovue 370. Thin section axial images were obtained from the lung bases through the pubic symphysis. Oral contrast was not administered. Please note that all CT scans at this facility use dose modulation, iterative reconstruction, and/or weight-based dosing when appropriate to reduce radiation dose to as low as reasonably achievable. FINDINGS: LUNG BASES: The lung bases as visualized appear normal.The heart size is normal at the lung bases. LIVER/BILIARY SYSTEM:The liver is normal in size and configuration. There is no focal mass and there is no intra- or extra hepatic biliary ductal dilatation.Hepatic steatosis. Distended but otherwise unremarkable appearing gallbladder. ADRENALS: Normal KIDNEYS, URETERS and BLADDER:The kidneys appear normal. No visible mass, calculus or hydronephrosis. The ureters and bladder as visualized appear normal. SPLEEN:Normal appearance. PANCREAS: Appears normal. RETROPERITONEUM and MESENTERY: There is no mass, adenopathy or aortic aneurysm. GASTROINTESTINAL SYSTEM: No mechanical obstruction. Mild thickening of the mid and right lateral aspect of the transverse colon probably indicating colitis. No intramural air, free air collection. No evidence of appendicitis. The patient`s colitis pattern on the prior study was substantially worse. PELVIS: No mass or adenopathy. Mild free fluid. An IUD appears to be normally located. Well-circumscribed low-density right adnexal structure probably an ovarian cyst. This measures about 4.1 centimeters. A similar finding was noted on the prior examination. Consider sonography for further characterization. It is unclear whether this is the same lesion or a new lesion. OSSEOUS STRUCTURES and ABDOMINAL WALL: There is an age-appropriate appearance of the osseous structures.No significant abdominal wall defect. OTHER: No free air. IMPRESSION: 1. Distended but otherwise unremarkable appearing gallbladder. 2. Mild thickening of the wall of the mid and right lateral aspect of the transverse colon probably due to colitis. The patient had a much more severe colitis pattern on the prior examination. Currently, no intramural air, free air or collection. 3. There is a 4.1 centimeter low-density well-circumscribed right adnexal structure which is probably ovarian in origin and is statistically most likely a cyst. Similar to the prior study though it is unclear whether this is the same structure or a recurrent lesion. Consider sonography for further characterization as appropriate clinically. Please note that all CT scans at this facility use dose modulation, iterative reconstruction, and/or weight-based dosing when appropriate to reduce radiation dose to as low as reasonably achievable. Dictated by Alvaro Esposito MD @ 08/16/2025 7:24:11 AM (Electronically Signed)
[2025-08-16] MEDS: PROCHLORPERAZINE 5 MG/ML VIAL IVP (06:54)
--- NOTE | 2025-08-16 06:57 | ED_ITS ---
HPI - Abdominal Pain General Date Seen: 08/16/25 <Juancarlos Sullivan MD - Last Filed: 08/19/25 18:07> Chief Complaint: Abdominal Pain <Juancarlos Sullivan MD - Last Filed: 08/19/25 18:07> Stated Complaint: Abdominal pain <Juancarlos Sullivan MD - Last Filed: 08/19/25 18:07> Time Seen by Provider: 08/16/25 06:20 <Juancarlos Sullivan MD - Last Filed: 08/19/25 18:07> Source: patient <Juancarlos Sullivan MD - Last Filed: 08/19/25 18:07> Mode of arrival: ambulatory <Juancarlos Sullivan MD - Last Filed: 08/19/25 18:07> Limitations: no limitations <Juancarlos Sullivan MD - Last Filed: 08/19/25 18:07> History of Present Illness HPI narrative: Patient is a 20-year-old female with a complicated recent medical history. She was seen in the ER here on 05/06/[address] evidence of colitis. C diff was negative. She was treated with dietary modification and told to follow-up in the clinic to discuss further workup including colonoscopy. She never followed through with the stool studies that were ordered and does not appear that she saw her PCP for well over a month after that and no plans were made for colonoscopy. Her stools were never black or bloody. She has had nausea, vomiting, diffuse abdominal pain but the duration of this is unclear. She tells me that it is been two weeks, she told the nurse that does been two months. She was just seen in the emergency room in [place] two days ago and underwent an abdominal x-ray, CBC, BMP, LFTs which were all unremarkable. There is no discussion of colitis and no CT scan repeated. She tells me that she has not been able to keep down any food or drink for the past six days. She was prescribed antibiotics for UTI although she has no urinary symptoms. 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 She came in early this morning because she is now vomiting so much that she is on a able to sleep. She tells me that she has not kept down any food or drink for six days but she is not appear dehydrated or acutely ill. She left a phone message with her PCP stating that she had seven positive home tests. She has an IUD in place. She saw one of our midwives who could not see her IUD wires. Follow-up ultrasound did confirm that her IUD is in good position. Her urine test in the ED two days ago was negative. Again she has no hematemesis, melena, hematochezia. No urinary symptoms. No fevers or chills. No weight loss. <Juancarlos Sullivan MD - Last Filed: 08/19/25 18:07> Related Data Home Medications: Home Medications ?Medication ?Instructions ?Recorded ?Confirmed dextroamphetamine-amphetamine 20 20 mg PO QDAY 5 08/16/25 mg tablet (Adderall) sertraline 50 mg tablet 50 mg PO QDAY 07/31/2508/16 Previous Rx's ?Medication ?Instructions ?Recorded tramadol 50 mg tablet 50 mg PO Q6H PRN Pain #10 ta bs 08/16/25 <Juancarlos Sullivan MD - Last Filed: 08/19/25 18:07> Allergies/Adverse Reactions: Allergies Allergy/AdvReac Type Severity Reaction Status Date / Time oxycodone Allergy Intermediate Gastrointestinal Verified 07/31/25 14:18 Upset <Juancarlos Sullivan MD - Last Filed: 08/19/25 18:07> Review of Systems Narrative She is on sertraline and Adderall for depression and ADHD. Her PCP is Dr. Valente at the [facility] in [place]. 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 Review of systems in all other areas is noted to be negative. <Juancarlos Sullivan MD - Last Filed: 08/19/25 18:07> [facility] Social History: Social History Smoking Status: Never smoker Do you use any of these nicotine containing products: None Second hand tobacco smoke exposure: No How often do you have a drink containing alcohol: never How often do you have six or more drinks on one occasion: Never AUDIT-C Alcohol total score: 0 Non-prescribed substance use: denies use <Juancarlos Sullivan MD - Last Filed: 08/19/25 18:07> Exam Narrative: Exam Narrative: Vitals noted. She does not appear clinically dehydrated. HEENT: Conjunctiva clear. Tympanic membranes are pearly white bilaterally. Posterior pharynx is clear without erythema or exudate. Neck is supple without adenopathy, thyromegaly, carotid bruit. Lungs: Clear to auscultation in all forrester. No wheezes, rales, rhonchi. Heart: Regular rate and rhythm without murmur. Abdomen: Soft and nontender. No guarding, rigidity, rebound. Bowel sounds are normal. No palpable masses. Extremities: No cyanosis or edema. Good distal pulses. Skin: No abnormalities noted of the exposed skin. Neurologic: Awake, alert, fully oriented. Neurologic exam is nonfocal. <Juancarlos Sullivan MD - Last Filed: 08/19/25 18:07> Const: Vital Signs, click to edit/add: Vital Signs - 24 hr 08/16/25 06:21 08/16/25 08:11 08/16/25 10:30 Temperature 98.3 F Pulse Rate [Pulse Oximeter] 111 H 82 87 Respiratory Rate 16 16 18 Blood Pressure [Ri ght Upper Arm] 133/67 101/59 L 107/54 L Pulse Oximetry 97 96 97 Oxygen Delivery Me thod Room Air Room Air Room Air <Juancarlos Sullivan MD - Last Filed: 08/19/25 18:07> Vital Signs, click to edit/add: Vital Signs - 24 hr 08/16/25 06:21 08/16/25 08:11 08/16/25 10:30 Temperature 98.3 F Pulse Rate [Pulse Oximeter] 111 H 82 87 Respiratory Rate 16 16 18 Blood Pressure [Ri ght Upper Arm] 133/67 101/59 L 107/54 L Pulse Oximetry 97 96 97 Oxygen Delivery Me thod Room Air Room Air Room Air <Tony Toney MD - Last Filed: 08/16/25 11:29> Course Course ED Course: Patient was seen and examined. I did not repeat her labs from two days ago. I am most concerned regarding the CT evidence of colitis three months ago with no specific follow-up. I think she warrants a follow-up CT scan to make sure that she does not still have active colitis. She is given a L of saline and Compazine 10 mg IV. For pain she is given Toradol [address] of the abdomen and pelvis with IV contrast is ordered. <Juancarlos Sullivan MD - Last Filed: 08/19/25 18:07> Reevaluation(s) Reevaluation #1: patient signed out to Dr. Toney at about 7:15 a.m. on 08/16. Pending results of CT scan. Med recors: She is . she has an IUD in place. She has a history of anxiety and depression. History of ADHD. 07/31/25 saw a healthcare technician in the [facility] with concern for positive home test. Apparently patient had not been able to palpate her IUD strings. In exam the patient had a speculum exam and IUD strings were not found. She had an outpatient ultrasound done 08/03 it showed IUD present in the fundus of her uterus. Right ovary was 5.0 x 3.2 x 3.5 cm. Left ovary was not visualized due to bowel gas. Right ovary had normal arterial and venous blood flow . simple appearing right ovarian cyst measuring 3.2 x 2.2 x 1.5. Additional simple right ovarian cyst measuring 2.6 x 3.0 x 2.6. no suspicious fluid collections In the cul-de-sac. Was in the ER in [place] 3 days ago 08/13. per that note she had had nausea, vomiting, lower abdominal pain for 1-2 weeks. She had an abdominal x- ray that showed a normal bowel gas pattern. Moderate colonic stool burden. No free air. Urinalysis showed 6-10 white cells, many bacteria, many epithelial cells. urine test was negative. Moderate leukocyte esterase. Serum white blood cell count was 11.6, CT scan results came back: IMPRESSION: 1. Distended but otherwise unremarkable appearing gallbladder. 2. Mild thickening of the wall of the mid and right lateral aspect of the transverse colon probably due to colitis. The patient had a much more severe colitis pattern on the prior examination. Currently, no intramural air, free air or collection. 3. There is a 4.1 centimeter low-density well-circumscribed right adnexal structure which is probably ovarian in origin and is statistically most likely a cyst. Similar to the prior study though it is unclear whether this is the same structure or a recurrent lesion. Consider sonography for further characterization as appropriate clinically. I recheck the patient at about 7:45 a.m.. She was sleeping. I had to shake her shoulder to get her wake up. She on deeply. She sat up. She was conversant and said she was feeling much better. She is tired of vomiting and glad she is not nauseous anymore. She is not having any pain. No nausea. We discussed that her CT scan shows 2 potential causes of pain. One potential cause being a 4 cm right adnexal structure which is probably a cyst (I do note that she had had 2 cysts noted on the right ovary from her pelvic ultrasound on 08/03. I suspect that this cystic structure is probably an expansion of 1 of those lesions.) We will get a pelvic ultrasound today did double check and make sure there is no sign of torsion or other problem related to that cyst. another potential causes that she has signs of mild colitis affecting the mid and right lateral aspect of the transverse colon. This would be a bit higher in her abdomen than to explain her reported lower pelvic pain. there is no evide nce for any sign of perforation, obstruction, abscess or any surgical emergency. However she did have colitis on her CT scan 3 months ago in April. She never had follow-up for that. She does not know if it was infectious, autoimmune, or other. We will double check labs today. I received a phone call from the technician assistant that there was some concern for potential torsion based on the initial ultrasound. Specifically they were able to get arterial Doppler flow, but no venous flow. I placed a phone call to obstetrics, Dr. Dowd. We discussed the patient's presentation. Labs are com ing back and looking fine except for white count of 11. Clinically this is a little bit of a confusing presentation. She has had a couple of weeks of pain and nausea and that time frame would argue against an acute torsion. However it sounds like she was quite miserable and repetitively vomiting overnight and is now better. Patient says currently no nausea or pain. At this point Dr. Dowd does not feel that we need to take the patient emergently to the OR. She would ask that we clinically observe this patient and get the formal radiology ultrasound report and call her back. I received a phone call from Radiology at about 9:[address] Cheema. He advises that there is ultrasonographic concern but not definitive evidence for torsion. She does not have venous flow documented in the right ovary. Dr. Cheema also notes that there appears to be some rightward deviation of the uterus on the CT which is another nonspecific finding that could correlate torsion. He strongly recommend Gynecology consultation. IMPRESSION: Simple right ovarian cyst measuring 4.1 cm. Spectral Doppler demonstrates absence of venous flow. Review of the same day abdominopelvic CT is notable for rightward deviation of the uterus. These features are suspicious for adnexal torsion which maybe incomplete or intermittent. No other findings to explain pelvic pain. PARKING PATROLLER consultation is recommended. I recheck the patient at the bedside. She says her nausea is coming back and on repeat exam she is now mildly tender in the right lower quadrant, and also periumbilical and epigastric. Overall she looks comfortable. No ?peritoneal? findings on her exam. Discussed with the patient that concern is for potential incomplete or intermittent torsion. However colitis remains on the differential as well. We discussed that ultimately the only way to definitively discover she is torso not would be surgery. Patient would be willing to undergo surgery if we think it is best. She does want a preserved future fertility. I called back to Gynecology, Dr. Tinoco at [phone]. She will come to the patient's bedside to evaluate. Recheck-patient was evaluated by [employer], Dr. Tinoco. After evaluation, Dr. Tinoco has low suspicion that this is a true torsion but not 0 suspicion. Based on imaging Dr. Dowd feels the patient should go for laparoscopy or. Dr. Dowd discussed the risks and benefits with the patient. She will take the patient to the OR for laparoscopy to rule out torsion. <Tony Toney MD - Last Filed: 08/16/25 11:29> Vital Signs Vital signs: Initial Vital Signs Temperature 98.3 F 08/16/25 06:21 Temperature Source Temporal Artery Scan 08/16/25 06:21 Pulse Rate 111 H 08/16/25 06:21 Respiratory Rate 16 08/16/25 06:21 Blood Pressure 133/67 08/16/25 06:21 Blood Pressure Mean 89 08/16/25 06:21 Blood Pressure Position Sitting 08/16/25 06:21 Pulse Oximetry 97 08/16/25 06:21 Oxygen Delivery Method Room Air 08/16/25 06:21 Vital Signs Temperature 98.3 F 08/16/25 06:21 Pulse Rate 111 H 08/16/25 06:21 Respiratory Rate 16 08/16/25 06:21 Blood Pressure 133/67 08/16/25 06:21 Pulse Oximetry 97 08/16/25 06:21 Oxygen Delivery Method Room Air 08/16/25 06:21 Temperature 98.1 F 08/16/25 15:45 Pulse Rate 94 08/16/25 16:00 Respiratory Rate 16 08/16/25 16:00 Blood Pressure 116/76 08/16/25 16:00 Pulse Oximetry 98 08/16/25 16:00 Oxygen Delivery Method Room Air 08/16/25 16:00 <Juancarlos Sullivan MD - Last Filed: 08/19/25 18:07> Initial Vital Signs Temperature 98.3 F 08/16/25 06:21 Temperature Source Temporal Artery Scan 08/16/25 06:21 Pulse Rate 111 H 08/16/25 06:21 Respiratory Rate 16 08/16/25 06:21 Blood Pressure 133/67 08/16/25 06:21 Blood Pressure Mean 89 08/16/25 06:21 Blood Pressure Position Sitting 08/16/25 06:21 Pulse Oximetry 97 08/16/25 06:21 Oxygen Delivery Method Room Air 08/16/25 06:21 Vital Signs Temperature 98.3 F 08/16/25 06:21 Pulse Rate 111 H 08/16/25 06:21 Respiratory Rate 16 08/16/25 06:21 Blood Pressure 133/67 08/16/25 06:21 Pulse Oximetry 97 08/16/25 06:21 Oxygen Delivery Method Room Air 08/16/25 06:21 Temperature 98.1 F 08/16/25 15:45 Pulse Rate 94 08/16/25 16:00 Respiratory Rate 16 08/16/25 16:00 Blood Pressure 116/76 08/16/25 16:00 Pulse Oximetry 98 08/16/25 16:00 Oxygen Delivery Method Room Air 08/16/25 16:00 <Tony Toney MD - Last Filed: 08/16/25 11:29> Medications Administered Medications: Discontinued Medications Generic Name Dose Route Start Last Admin Trade Name Freq PRN Reason Stop Dose Admin Bupivacaine HCl/Epinephrine Bitart 30 ml 08/16/25 12:11 08/16/25 14:03 Bupivacaine 0.25 %/Epi 1:200k 30 Ml INJECTION 08/16/25 12:12 20 ml ONCE ONE Administration Sodium Chloride 1,000 mls @ 1,000 mls/hr 08/16/25 06:47 08/16/25 09:00 0.9 % Sodium Chloride 1000 Ml IV 08/16/25 07:46 Infused .Q1H SAGE Infusion Lactated Ringer's 1,000 mls @ 100 mls/hr 08/16/25 11:40 08/16/25 14:45 Lactated Ringers 1000 Ml IV Infused .Q10H SAGE Infusion Lactated Ringer's 1,000 mls @ 125 mls/hr 08/16/25 12:55 08/16/25 15:57 Lactated Ringers 1000 Ml IV Infused .Q8H SAGE Infusion Ketorolac Tromethamine 30 mg 08/16/25 06:49 08/16/25 06:54 Ketorolac 30 Mg/Ml Inj IVP 08/16/25 06:50 30 mg ONCE ONE Administration Ketorolac Tromethamine 15 mg 08/16/25 14:10 08/16/25 14:10 Ketorolac 15 Mg/Ml Inj IVP 08/16/25 14:11 15 mg ONCE ONE Administration Phenylephrine HCl 100 mcg 08/16/25 11:39 08/16/25 14:43 Phenylephrine 100 Mcg/Ml Syringe IVP 100 mcg Q5M PRN Administration Prochlorperazine 5 mg 08/16/25 06:47 08/16/25 06:54 Prochlorperazine 5 Mg/Ml Vial IVP 08/16/25 06:48 5 mg ONCE ONE Administration Silver Nitrate/Potassium Nitrate 1 each 08/16/25 14:14 08/16/25 14:10 Silver Nitrate Applicator 1 Each Stick..Ea. TOPICAL 08/16/25 14:15 1 each ONCE ONE Administration <Juancarlos Sullivna MD - Last Filed: 08/19/25 18:07> Discontinued Medications Generic Name Dose Route Start Last Admin Trade Name Freq PRN Reason Stop Dose Admin Bupivacaine HCl/Epinephrine Bitart 30 ml 08/16/25 12:11 08/16/25 14:03 Bupivacaine 0.25 %/Epi 1:200k 30 Ml INJECTION 08/16/25 12:12 20 ml ONCE ONE Administration Sodium Chloride 1,000 mls @ 1,000 mls/hr 08/16/25 06:47 08/16/25 09:00 0.9 % Sodium Chloride 1000 Ml IV 08/16/25 07:46 Infused .Q1H SAGE Infusion Lactated Ringer's 1,000 mls @ 100 mls/hr 08/16/25 11:40 08/16/25 14:45 Lactated Ringers 1000 Ml IV Infused .Q10H SAGE Infusion Lactated Ringer's 1,000 mls @ 125 mls/hr 08/16/25 12:55 08/16/25 15:57 Lactated Ringers 1000 Ml IV Infused .Q8H SAGE Infusion Ketorolac Tromethamine 30 mg 08/16/25 06:49 08/16/25 06:54 Ketorolac 30 Mg/Ml Inj IVP 08/16/25 06:50 30 mg ONCE ONE Administration Ketorolac Tromethamine 15 mg 08/16/25 14:10 08/16/25 14:10 Ketorolac 15 Mg/Ml Inj IVP 08/16/25 14:11 15 mg ONCE ONE Administration Phenylephrine HCl 100 mcg 08/16/25 11:39 08/16/25 14:43 Phenylephrine 100 Mcg/Ml Syringe IVP 100 mcg Q5M PRN Administration Prochlorperazine 5 mg 08/16/25 06:47 08/16/25 06:54 Prochlorperazine 5 Mg/Ml Vial IVP 08/16/25 06:48 5 mg ONCE ONE Administration Silver Nitrate/Potassium Nitrate 1 each 08/16/25 14:14 08/16/25 14:10 Silver Nitrate Applicator 1 Each Stick..Ea. TOPICAL 08/16/25 14:15 1 each ONCE ONE Administration <Tony Toney MD - Last Filed: 08/16/25 11:29> MDM - Abdominal Pain Lab Data Labs: Lab Results 08/16/25 08/16/25 Range/Units 07:00 10:32 WBC 11.17 H (4.50-11.00) K/uL RBC 5.48 H (4.00-5.20) m/uL Hgb 15.7 (12.0-16.0) gm/dL Hct 47.1 (33.0-51.0) % MCV 86 (80-100) fL MCH 29 (26-34) pg MCHC 33 (32-36) gm/dL RDW Coeff of Michelle 12.7 (11.5-15.5) % Plt Count 316 (140-440) K/uL Neut % (Auto) 85.4 H (42.0-72.0) % Lymph % (Auto) 7.0 L (20-44) % Mccormick % (Auto) 6.9 (0.0-11.0) % Eos % (Auto) 0.3 (0.0-7.0) % Baso % (Auto) 0.1 (0.0-3.0) % Neut # (Auto) 9.50 H (1.7-7.0) K/uL Lymph # (Auto) 0.80 L (0.90-2.90) K/uL Mccormick # (Auto) 0.80 (0.00-0.90) K/UL Eos # (Auto) 0.00 (0.00-0.50) K/uL Baso # (Auto) 0.00 (0.00-0.30) K/uL Abs Immat Gran (auto) 0.00 (0.00-0.30) K/uL Imm/Tot Granulo (auto) 0.3 % Sodium 136 (135-149) mmol/L Potassium 3.8 (3.6-5.1) mmol/L Chloride 99 (96-114) mmol/L Carbon Dioxide 25 (20-32) mmol/L Anion Gap 12 (7-15) mEq/L BUN 16 (5-24) mg/dL Creatinine 0.7 (0.5-1.5) mg/dL Estimated Creat Clear 109.78 Estimated GFR 126 ml/min Glucose 119 H (60-115) mg/dL Calcium 8.9 (8.4-10.6) mg/dL Total Bilirubin 0.9 (0.1-1.5) mg/dL AST 20 (12-35) U/L ALT 20 (4-35) U/L Alkaline Phosphatase 138 (40-150) U/L Total Protein 6.9 (6.0-8.3) g/dL Albumin 4.1 (3.3-5.0) g/dL Lipase 66 (23-300) U/L HCG, Qual Negative (Negative) Urine Color Yellow (Yellow) Urine Appearance Clear (Clear) Urine pH 6.0 (5.0-8.5) Ur Specific [place] 1.015 (1.000-1.030) Urine Protein Trace A (Negative) Urine Glucose (UA) Negative (Negative) Urine Ketones Negative (Negative) Urine Blood Negative (Negative) Urine Nitrite Negative (Negative) Urine Bilirubin Negative (Negative) Urine Urobilinogen 0.2 (0.2-1.0) Ur Leukocyte Esterase Negative (Negative) Urine RBC 0-2 (0-2) Urine WBC 2-5 (0-5) Ur Squamous Epith Cells Moderate A (None-Few) Urine Bacteria Few A (None) <Juancarlos Sullivan MD - Last Filed: 08/19/25 18:07> Lab Results 08/16/25 08/16/25 Range/Units 07:00 10:32 WBC 11.17 H (4.50-11.00) K/uL RBC 5.48 H (4.00-5.20) m/uL Hgb 15.7 (12.0-16.0) gm/dL Hct 47.1 (33.0-51.0) % MCV 86 (80-100) fL MCH 29 (26-34) pg MCHC 33 (32-36) gm/dL RDW Coeff of Michelle 12.7 (11.5-15.5) % Plt Count 316 (140-440) K/uL Neut % (Auto) 85.4 H (42.0-72.0) % Lymph % (Auto) 7.0 L (20-44) % Mccormick % (Auto) 6.9 (0.0-11.0) % Eos % (Auto) 0.3 (0.0-7.0) % Baso % (Auto) 0.1 (0.0-3.0) % Neut # (Auto) 9.50 H (1.7-7.0) K/uL Lymph # (Auto) 0.80 L (0.90-2.90) K/uL Mccormick # (Auto) 0.80 (0.00-0.90) K/UL Eos # (Auto) 0.00 (0.00-0.50) K/uL Baso # (Auto) 0.00 (0.00-0.30) K/uL Abs Immat Gran (auto) 0.00 (0.00-0.30) K/uL Imm/Tot Granulo (auto) 0.3 % Sodium 136 (135-149) mmol/L Potassium 3.8 (3.6-5.1) mmol/L Chloride 99 (96-114) mmol/L Carbon Dioxide 25 (20-32) mmol/L Anion Gap 12 (7-15) mEq/L BUN 16 (5-24) mg/dL Creatinine 0.7 (0.5-1.5) mg/dL Estimated Creat Clear 109.78 Estimated GFR 126 ml/min Glucose 119 H (60-115) mg/dL Calcium 8.9 (8.4-10.6) mg/dL Total Bilirubin 0.9 (0.1-1.5) mg/dL AST 20 (12-35) U/L ALT 20 (4-35) U/L Alkaline Phosphatase 138 (40-150) U/L Total Protein 6.9 (6.0-8.3) g/dL Albumin 4.1 (3.3-5.0) g/dL Lipase 66 (23-300) U/L HCG, Qual Negative (Negative) Urine Color Yellow (Yellow) Urine Appearance Clear (Clear) Urine pH 6.0 (5.0-8.5) Ur Specific [place] 1.015 (1.000-1.030) Urine Protein Trace A (Negative) Urine Glucose (UA) Negative (Negative) Urine Ketones Negative (Negative) Urine Blood Negative (Negative) Urine Nitrite Negative (Negative) Urine Bilirubin Negative (Negative) Urine Urobilinogen 0.2 (0.2-1.0) Ur Leukocyte Esterase Negative (Negative) Urine RBC 0-2 (0-2) Urine WBC 2-5 (0-5) Ur Squamous Epith Cells Moderate A (None-Few) Urine Bacteria Few A (None) <Tony Toney MD - Last Filed: 08/16/25 11:29> Discharge Plan Discharge Clinical Impression: Abdominal pain, Vomiting, Ovarian cyst <Juancarlos Sullivan MD - Last Filed: 08/19/25 18:07> Patient Disposition: XFER to OR <Juancarlos Sullivan MD - Last Filed: 08/19/25 18:07>
--- NOTE | 2025-08-16 07:40 | CRLHL7_ITS ---
For Patients: As a result of the Century Cures Act, medical imaging exams and procedure reports are released immediately into your electronic medical record. You may view this report before your referring provider. If you have questions, please contact your health care provider. INDICATION: Pelvic pain. Right adnexal cyst. COMPARISON: Prior abdominopelvic CT examinations dated 08/16/2025 and 05/06/2025 TECHNIQUE: Endovaginal spectral Doppler (duplex), which includes both color Doppler and lizama-scale images, pelvic ultrasound. FINDINGS: LMP: Not provided. Uterus: Measures 5.1 x 4.2 x 8.8cm. Unremarkable cervix. Please note that US is insensitive for detection of epithelial lesions of the cervix, compared to physical examination. Endometrial stripe: Measures mm. Uniform in thickness. Right Ovary: Redemonstration of a anechoic unilocular right ovarian cyst measuring 4.1 cm in greatest dimension. Spectral Doppler demonstrates pulsatile arterial flow within the peripheral parenchymal tissue which incompletely surrounds the cyst. No venous flow is identified on spectral Doppler. Left Ovary: Not seen. Pelvic fluid: No significant pelvic ascites. IMPRESSION: Simple right ovarian cyst measuring 4.1 cm. Spectral Doppler demonstrates absence of venous flow. Review of the same day abdominopelvic CT is notable for rightward deviation of the uterus. These features are suspicious for adnexal torsion which maybe incomplete or intermittent. No other findings to explain pelvic pain. NETWORK SERVICES PROJECT MANAGER consultation is recommended. Dictated by Leonel Cheema MD @ 08/16/2025 9:11:20 AM (Electronically Signed)
[2025-08-16 08:03] LABS: Hematocrit* 47.1 % (33.0-51.0); Hemoglobin* 15.7 gm/dL (12.0-16.0); Immature Granulocytes Pct Auto 0.3 %; Mean Corpuscular HGB Conc 33 gm/dL (32-36); Mean Corpuscular Hemoglobin 29 pg (26-34); Mean Corpuscular Volume 86 fL (80-100); RDW Coefficient of Variation % 12.7 % (11.5-15.5); Red Blood Count* 5.48 m/uL (4.00-5.20); White Blood Count* 11.17 K/uL (4.50-11.00)
[2025-08-16 08:12] LABS: Albumin* 4.1 g/dL (3.3-5.0); Chloride* 99 mmol/L (96-114); Potassium* 3.8 mmol/L (3.6-5.1); Sodium* 136 mmol/L (135-149)
[2025-08-16 08:14] LABS: Alanine Aminotransferase* 20 U/L (4-35); Anion Gap 12 mEq/L (7-15); Aspartate Amino Transferase* 20 U/L (12-35); Blood Urea Nitrogen* 16 mg/dL (5-24); Carbon Dioxide* 25 mmol/L (20-32); Creatinine* 0.7 mg/dL (0.5-1.5); Est. Creatinine Clearance* 109.78; Estimated Glomerular Filt Rate 126 ml/min
[2025-08-16 08:15] LABS: Alkaline Phosphatase* 138 U/L (40-150); Bilirubin Total* 0.9 mg/dL (0.1-1.5); Calcium* 8.9 mg/dL (8.4-10.6); Glucose* 119 mg/dL (60-115); Total Protein* 6.9 g/dL (6.0-8.3)
[2025-08-16 08:19] LABS: Immature Granulocytes Abs Auto 0.00 K/uL (0.00-0.30); Lymphocytes Absolute Auto 0.80 K/uL (0.90-2.90); Slide Review Reflex No
[2025-08-16 08:31] LABS: HCG Qualitative Serum* Negative (Negative)
[2025-08-16 10:41] LABS: Appearance Urine Clear (Clear)
--- NOTE | 2025-08-16 11:48 | PM.GYNCN1 ---
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 Taylor Robison is a 20 year old P1 (C/S) female seen for evaluation of abdominal pain with right ovarian cyst. OBGYN history notable for 1 prior , IUD in place for contraception. Patient notes she has had abdominal pain in the epigastric region and intermittently right lower quadrant for about the last 2 months. She notes her pain had been manageable with ibuprofen or Tylenol p.r.n., but has seem to increase with time. In the last 24 hours, she notes her pain is more significant and is associated with nausea/vomiting. She additionally has had diarrhea in the last 24 hours. She notes that her pain is most significant in the epigastric region, described like someone is grabbing her on the inside. She notes this pain seems to get worse when she lies flat. She additionally has some right lower quadrant pain, notes no known exacerbating or alleviating factors specifically. This pain might be more significant when she walks, but other times seems to get better with movement. Patient is sexually active with 1 male partner. Denies abnormal vaginal discharge, vulvovaginal itching or burning. She utilizes IUD and condoms for contraception. She notes that she thought she had a positive home test about 2 weeks ago, but all clinical tests have been negative. She was seen on 08/01 by 1 of our cm, where IUD strings could not be seen. A subsequent pelvic ultrasound confirmed IUD was present in the endometrial canal. The right ovary was measured at 5.0 x 3.2 x 3.5 cm in size with a 3.2 x 2.2 x 1.5 simple right ovarian cyst and 2.6 x 3.0 x 2.6 simple right ovarian cyst. When she 1st presented to care, she was rating her pain between a 5-7 with associated nausea and received Toradol and Compazine. When eyes 1st contacted by the ED at about a.m., she then noted that the pain had completely resolved. She underwent a CT of the abdomen and pelvis in the ED, which demonstrated mild thickening of the mid and right lateral aspect of the transverse colon likely indicating colitis. In addition, there was a 4.1 cm right ovarian cyst. A subsequent pelvic US was performed, confirming a simple 4.1cm right ovarian cyst. Doppler flow demonstrates absence of venous flow and there review of CT said there was slight rightward deviation of the uterus, prompting concern for ovarian torsion. Arterial flow is preserved. cc:: CC: [facility] Social History Smoking Status: Never smoker Do you use any of these nicotine containing products: None Second hand tobacco smoke exposure: No How often do you have a drink containing alcohol: never How often do you have six or more drinks on one occasion: Never AUDIT-C Alcohol total score: 0 Non-prescribed substance use: denies use Meds Home Medications and Allergies Home Medications ?Medication ?Instructions ?Recorded ?Confirmed ?Type dextroamphetamine-amphetamine 20 20 mg PO QDAY 07/31/25 08/16/25 History mg tablet (Adderall) sertraline 50 mg tablet 50 mg PO QDAY 07/31/25 08/16/25 History tramadol 50 mg tablet 50 mg PO Q6H PRN Pain #10 tabs 08/16/25 Rx Allergies Allergy/AdvReac Type Severity Reaction Status Date / Time oxycodone Allergy Intermediate Gastrointestinal Verified 07/31/25 14:18 Upset 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 Face timing with friends. Psych: Appropriate mood and affect. Abdomen: Soft, non distended. Tenderness reported to palpation in the epigastric region, about 3cm above umbilicus. No rebound or guarding. She additionally notes tenderness when palpating both the right and left lower quadrants, right greater than left. No rebound or guarding. At site of greatest pain in the RLQ, Carnett sign is positive. Pelvic: External genital exam within normal limits. Bimanual exam performed, no cervical motion or uterine tenderness. Slight tenderness to palation of right adenxa, none on left. 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 - Results Labs Labs: Short CBC 08/16/25 Range/Units 07:00 WBC 11.17 H (4.50-11.00) K/uL Hgb 15.7 (12.0-16.0) gm/dL Hct 47.1 (33.0-51.0) % Plt Count 316 (140-440) K/uL BMP 08/16/25 07:00 Sodium 136 Potassium 3.8 Chloride 99 Carbon Dioxide 25 BUN 16 Creatinine 0.7 Glucose 119 H Calcium 8.9 Liver Function 08/16/25 Range/Units 07:00 Total Bilirubin 0.9 (0.1-1.5) mg/dL AST 20 (12-35) U/L ALT 20 (4-35) U/L Alkaline Phosphatase 138 (40-150) U/L Albumin 4.1 (3.3-5.0) g/dL Urine 08/16/25 Range/Units 10:32 Urine Color Yellow (Yellow) Urine Appearance Clear (Clear) Urine pH 6.0 (5.0-8.5) Ur Specific Sheridan 1.015 (1.000-1.030) Urine Protein Trace A (Negative) Urine Glucose (UA) Negative (Negative) Assessment and Plan Assessment and plan (1) Ovarian cyst: Status: Acute (2) Abdominal pain: Status: Acute (3) Vomiting: Status: Acute Plan Taylor Robison is a 20 year old P1 (C/S) female seen for evaluation of abdominal pain with right ovarian cyst. OBGYN history notable for 1 prior , IUD in place for contraception. Patient has mid epigastric pain as well as right lower quadrant pain. She notes this has been present for almost 2 months, but is worse in the last few days. She has associated recurrent nausea/vomiting and diarrhea times/24 hours. Clinically, my abdominal exam is largely benign. She does have some right lower quadrant tenderness but also a positive Carnett's sign, with no rebound or guarding, making acute intra-abdominal processes unlikely. In addition, she only has minimal discomfort on bimanual exam of the right adnexa. Still, she does have radiographic findings that could be suggestive of an ovarian torsion. Explained that my clinical impression for ovarian torsion is relatively low, but as this is technically a surgical diagnosis and given her radiographic findings, I do feel patient was a candidate for diagnostic laparoscopy. Explained this would provide definitive identification, where if the ovary is torsed we would proceed to de-torse it and then perform an ovarian cystectomy. If not torsed, patient notes she is comfortable with me making a decision regarding cystectomy during surgery, but she would favor having the cyst removed. Explained the risks of surgery including negative diagnostic laparoscopy, bleeding (that could potentially require oophorectomy), infection, damage to surrounding structures (uterus, tubes, ovaries, bowel, bladder, blood vessels), conversion to open. Explained if the patient is not undergoing ovarian torsion, then I think it is highly unlikely that her pain, nausea/vomiting and diarrhea would be explained by the ovarian cyst itself. After discussion, written consent for diagnostic laparoscopy, possible ovarian de-torsion and possible right ovarian cystectomy was obtained. No perioperative antibiotics indicated. Plan to proceed with next OR availability as patient has previously been NPO for >8 hours.
[2025-08-16] MEDS: LACTATED RINGERS 1000 ML 1,000 ML 125 ML IV (12:02)
--- NOTE | 2025-08-16 13:17 | P.ANES_ITS ---
Anesthesia Charges Start Date/Time Anesthesia Start Date: 08/16/25 Anesthesia Start Time: 12:40 Stop Date/Time Anesthesia Stop Date: 08/16/25 Anesthesia Stop Time: 14:31 Summary Emergency: [facility] Coding CPT Codes CPT Codes: ANESTH SURG LOWER ABDOMEN - 52785 ([id number]) P2 - PATIENT W/MILD SYST DISEASE, QK - SALESFORCE BUSINESS ANALYST 2-4 CNCRNT ANES PROC, QX - STAIN APPLICATOR SVC W/ MD MED DIRECTION Additional Codes: Summary - Emergency: [facility] ([id number])
--- NOTE | 2025-08-16 13:17 | W.ANESCHARGE ---
Anesthesia Charges Start Date/Time Anesthesia Start Date: 08/16/25 Anesthesia Start Time: 12:40 Stop Date/Time Anesthesia Stop Date: 08/16/25 Anesthesia Stop Time: 14:31 Summary Emergency: [facility] Coding CPT Codes CPT Codes: ANESTH SURG LOWER ABDOMEN - 38138 ([id number]) P2 - PATIENT W/MILD SYST DISEASE, QK - CUTLERY GRINDER 2-4 CNCRNT ANES PROC, QX - BICYCLE RACER SVC W/ MD MED DIRECTION Additional Codes: Summary - Emergency: [facility] ([id number])
[2025-08-16] MEDS: LACTATED RINGERS 1000 ML 1,000 ML 100 ML IV (13:30)
[2025-08-16] MEDS: BUPIVACAINE 0.25 %/EPI 1:200K 30 ml INJECTION (14:03)
[2025-08-16] MEDS: SILVER NITRATE APPLICATOR 1 EACH STICK..EA. TOPICAL (14:10)
--- NOTE | 2025-08-16 14:19 | W.PM.GYNPROC ---
Procedure Note Time Seen by Provider: 14:28 Date of procedure: 08/16/25 Will [facility] bill your pro fee for this procedure?: Yes Pre-op diagnosis: Abdominal Pain, nausea/vomiting Right ovarian Cyst Possible right ovarian torsion Post-op diagnosis: Right Ovarian Cyst Procedure: Diagnostic laparoscopy, right ovarian cystectomy Anesthesia: GETA Complications: None Surgeon: Cachorro Tinoco MD Estimated blood loss (mL): 25 IV fluids (mL): 1,700 Urine Output (mL): 100 Pathology: specimen obtained, sent to pathology Condition: stable Disposition: same day Findings: No ovarian torsion Right ovarian cyst Otherwise unremarkable abdominal and pelvic survey Procedure Description: The patient was prepped and draped in the synchronous position, with legs supported by Yellofin stirrups. After sterile prep and drape, a surgical pause was completed. Logan catheter was inserted. Speculum was inserted, where cervix appeared unremarkable. IUD strings could not be seen, consistent with known lost IUD strings. A Beyond the Box manipulator was carefully placed through the endocervical canal and secured. Attention was then turned to the abdomen. A 10-mm periumbilical skin incision was made and carried through the fascia using an open laparoscopic technique. Fascial tags were placed with 0 vicryl. A 10-mm Thalia trocar was placed and pneumoperitoneum created. Visual inspection immediately below site of entry demonstrated no injury to bowel or bleeding. Visually inspected the pelvis and abdomen which revealed the above noted findings. A right ovarian cyst was visualized but torsion was noted to be absent. Under direct vision, two additional 5-mm ports were then placed in the left lower quadrant. The first was 2cm superior and medial to ASIS, the second was a hand's breadth superior to and slightly medial to the first. I identified an area of the right ovarian cyst which was far from the vasculature and fallopian tube. An incision was made over the ovary with monopolar cautery. The ovarian cyst was dissected from the normal ovarian stroma utilizing gentle traction and monopolar cautery as needed. The cyst wall was disrupted during dissection, where spillage of clear fluid was noted. Fluid was immediately evacuated with suction economic adviser. The cyst wall was dissected and removed until the entire cyst wall was excised. The cyst bed was irrigated and hemostasis was obtained with electrocautery. Caroline was applied across cyst bed. Excellent hemostasis was noted throughout, including low pressure test. Procedure was deemed complete. Ports were removed under direct visualization. The umbilical fascia incision was closed with 0 vicryl in a figure of eight. Fascial tags were then tied together. All skin incisions were closed with subcuticular 3-0 Monocryl. Attention was turned back to the vagina. Speculum inserted, where Hulka retractor was gently removed. Silver nitrate x1 was applied at tenaculum site. Logan removed. The patient was taken to the recovery room in good condition.
--- NOTE | 2025-08-16 14:33 | P.ANES_ITS ---
Anesthesia Charges Start Date/Time Anesthesia Start Date: 08/16/25 Anesthesia Start Time: 12:40 Stop Date/Time Anesthesia Stop Date: 08/16/25 Anesthesia Stop Time: 14:31 Summary Emergency: MDA Coding CPT Codes CPT Codes: ANESTH SURG LOWER ABDOMEN - 93962 ([id number]) P2 - PATIENT W/MILD SYST DISEASE, QK - DESKTOP SUPPORT SPECIALIST 2-4 CNCRNT ANES PROC Additional Codes: Summary - Emergency: MDA ([id number])
--- NOTE | 2025-08-16 14:33 | W.ANESCHARGE ---
Anesthesia Charges Start Date/Time Anesthesia Start Date: 08/16/25 Anesthesia Start Time: 12:40 Stop Date/Time Anesthesia Stop Date: 08/16/25 Anesthesia Stop Time: 14:31 Summary Emergency: MDA Coding CPT Codes CPT Codes: ANESTH SURG LOWER ABDOMEN - 44733 ([id number]) P2 - PATIENT W/MILD SYST DISEASE, QK - DRIP PUMPER 2-4 CNCRNT ANES PROC Additional Codes: Summary - Emergency: MDA ([id number])
[2025-08-16] MEDS: PHENYLEPHRINE 100 MCG/ML SYRINGE IVP (14:43)
[2025-08-16] MEDS: LACTATED RINGERS 1000 ML 1,000 ML 30 ML IV (14:45)
== END 2025-08-16 16:11 | disposition home or self-care (01) ==
LOC: ED 11:29 → SS 12:10
PROVIDERS: Emergency Medicine; Emergency Provider Family Medicine; PCP Student in an Organized Health Care Education/Training Program; Visit Provider Obstetrics & Gynecology
PROC: (CPT 49320; principal; 2025-08-16 12:00)
PROC: (CPT 58662; 2025-08-16 12:00)
DX: N83.291 Other ovarian cyst, right side (principal); R11.2 Nausea with vomiting, unspecified; R10.9 Unspecified abdominal pain; Z97.5 Presence of (intrauterine) contraceptive device
CPT/HCPCS: 58662; 00840; 36415; 74177; 76830; 80053; 81001; 83690; 84703; 85025; 87086; 93976; 99140; 99283; 99285; A9270; J0330; J0780; J1100; J1630; J1885; J2250; J2371; J2405; J2704; J2710; J3010; J7030; J7120; Q9967